=== PATIENT | male | born 1985 | race American Indian/Alaskan Native ===

== ENCOUNTER 2020-09-20 21:34 | Emergency (ER) | payer OTHER ==
[2020-09-20] MEDS ORDERED: LIDOCAINE (1%) 10 MG/1 ML VIAL 20 ML MDV ONE (21:47)
[2020-09-20] MEDS ORDERED: SODIUM CHLORIDE IRRI 500 ML 500 ML IR ONE (21:49)
[2020-09-20] MEDS ORDERED: DIPHtheria,PERTUSSIS(ACELL),TETANUS VACCINE/PF 0.5 ML VIAL IM ONE (21:50)
[2020-09-20] MEDS: LIDOCAINE (1%) 10 MG/1 ML VIAL 20 ML MDV INFILTRATI ONE ×2 (22:05→23:29)
--- NOTE | 2020-09-20 22:09 | Emergency Department Report ---
ED Animal Bite HPI - General Chief Complaint: Animal Bite Stated Complaint: DOG BITE/LEFT SIDE/[employer] COMP Time Seen by Provider: 09/20/20 21:45 Source: patient Mode of arrival: Ambulatory Limitations: No Limitations - History of Present Illness Initial Comments: Patient is a 35-year-old male with no significant past medical history. Patient presented to the ER for evaluation after a dog bite. 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 Patient presented with laceration to the left arm and multiple abrasion to the chest wall. Patient stated that the dog is up-to-date on immunization. She also stated that the dog look well and it does not look sick. Patient is not sure about his tetanus immunization patient given tetanus shot in the ER. Laceration repaired. Patient advised to follow-up with his primary doctor in the next 2 to 3 days and to return to the ER if he develop any new symptoms. MD Complaint: animal bite, animal-related injury -: Sudden Left: Arm Animal: dog Description: household pet, appeared well Mechanism: bite Pain Description: sharp Context: unprovoked Associated Symptoms: none - Related Data Patient Tetanus UTD: No Allergies Allergy/AdvReac Type Severity Reaction Status Date / Time shellfish derived Allergy Anaphylaxis Verified 09/20/20 22:02 ED Review of Systems ROS: Stated complaint: DOG BITE/LEFT SIDE/[employer] COMP Other details as noted in HPI Comment: All other systems reviewed and negative Constitutional: denies: chills, fever Respiratory: denies: cough, shortness of breath, SOB with exertion Cardiovascular: denies: chest pain, palpitations Gastrointestinal: denies: abdominal pain, nausea Musculoskeletal: denies: back pain ED Past Medical Hx - Past Medical History Previous Medical History?: Yes Hx Hypertension: Yes - Surgical History Past Surgical History?: No - Social History Smoking Status: Never Smoker Substance Use Type: Alcohol ED Physical Exam - General Limitations: No Limitations General appearance: alert, in no apparent distress - Head Head exam: Present: atraumatic, normocephalic, normal inspection - Eye Eye exam: Present: normal appearance - ENT ENT exam: Present: normal exam - Neck Neck exam: Present: normal inspection, full ROM. Absent: tenderness, meningismus - Respiratory Respiratory exam: Present: normal lung sounds bilaterally - Cardiovascular Cardiovascular Exam: Present: regular rate, normal rhythm, normal heart sounds - GI/Abdominal GI/Abdominal exam: Present: soft, normal bowel sounds. Absent: distended, te nderness, guarding, rebound, rigid - Expanded Upper Extremity Exam Right General: Present: laceration (4 cm laceration to the left arm.) Shoulder Exam: Present: normal inspection, full ROM - Skin Skin exam: Present: abrasion ED Course Vital Signs 09/20/20 21:45 Temperature 98.2 F Pulse Rate 73 Respiratory 18 Rate Blood Pressure 142/82 O2 Sat by Pulse 96 Oximetry - Laceration /Wound Repair Left Arm Wound's Depth, Shape: linear, irregular Wound Explored: clean Betadine Prep?: Yes Anesthesia: 1% Lidocaine Volume Anesthetic (ccs): 4 Wound Repaired With: sutures Suture Size/Type: 4:0 Sterile Dressing Applied?: Yes Critical care attestation.: If time is entered above; I have spent that time in minutes in the direct care of this critically ill patient, excluding procedure time. ED Disposition Clinical Impression: Dog bite, Laceration of upper arm Disposition: DC-01 TO HOME OR SELFCARE Is pt being admited?: No Condition: Stable Instructions: Animal Bite, Adult, [id number], Sutured Wound Care, Laceration Care, Adult Referrals: PRIMARY CARE, [Referring] - 3-5 Days
[2020-09-20] MEDS ORDERED: NEOMY 3.5 MG/BACIT 400 UNITS/POLY B 5000 UNITS/GM OINT PACKET TP ONE (22:26)
[2020-09-20] MEDS: NEOMY 3.5 MG/BACIT 400 UNITS/POLY B 5000 UNITS/GM OINT PACKET TP ONE ×2 (22:30→23:29)
[2020-09-20 22:51] VITALS: BP 142/82
== END 2020-09-20 22:00 | disposition home or self-care (01) ==
LOC: ED 21:34
DX: S41.112A Laceration without foreign body of left upper arm, initial encounter (principal); S20.319A Abrasion of unspecified front wall of thorax, initial encounter; I10 Essential (primary) hypertension; Z91.013 Allergy to seafood; W54.0XXA Bitten by dog, initial encounter; Y93.89 Activity, other specified; Y92.89 Other specified places as the place of occurrence of the external cause; Y99.8 Other external cause status
CPT/HCPCS: 12002; 90471; 90715; 99282; A6250

== ENCOUNTER 2020-09-28 15:21 | Emergency (ER) | payer OTHER ==
[2020-09-28 16:01] VITALS: BP 174/106
--- NOTE | 2020-09-28 16:08 | Emergency Department Report ---
ED General Adult HPI - General Chief complaint: Laceration/Recheck/Suture Stated complaint: SUTURE REM Source: patient Mode of arrival: Ambulatory Limitations: No Limitations - History of Present Illness Initial comments: Patient presents for suture removal today. Sutures were placed here in ED 09/20/2020 after obtaining a dog bite. He states compliance with antibiotics and denies any fever/chills/sweats, increased pain, wound drainage, redness, or swelling. Severity scale (0 -10): 0 - Related Data Previous Rx's Medication Instructions Recorded Last Taken Type Amoxicillin/Potassium Clav 1 each PO BID #14 tablet 09/20/20 Unknown Rx [Augmentin 875-125 Tablet] Naproxen [Naprosyn] 500 mg PO BID #14 tablet 09/20/20 Unknown Rx Allergies Allergy/AdvReac Type Severity Reaction Status Date / Time shellfish derived Allergy Anaphylaxis Verified 09/20/20 22:02 ED Review of Systems ROS: Stated complaint: SUTURE REM Other details as noted in HPI Constitutional: denies: fever, malaise, weakness Gastrointestinal: denies: nausea, vomiting Skin: as per HPI. denies: rash, change in color Neurological: denies: numbness, paresthesias ED Past Medical Hx - Past Medical History Previous Medical History?: Yes Hx Hypertension: Yes - Surgical History Past Surgical History?: No - Social History Smoking Status: Never Smoker Substance Use Type: Alcohol - Medications Home Medications: Home Medications Medication Instructions Recorded Confirmed Last Taken Type Amoxicillin/Potassium Clav 1 each PO BID #14 tablet 09/20/20 Unknown Rx [Augmentin 875-125 Tablet] Naproxen [Naprosyn] 500 mg PO BID #14 tablet 09/20/20 Unknown Rx ED Physical Exam - General Limitations: No Limitations General appearance: alert, in no apparent distress - Head Head exam: Present: atraumatic, normocephalic - Eye Eye exam: Present: normal appearance. Absent: scleral icterus - Respiratory Respiratory exam: Absent: respiratory distress - Cardiovascular Cardiovascular Exam: Present: regular rate - Neurological Exam Neurological exam: Present: alert, oriented X3 - Psychiatric Psychiatric exam: Present: normal affect, normal mood - Skin Skin exam: Present: warm, dry, intact, normal color, other (Healing laceration noted to inner upper left arm without surrounding erythema, swelling, or drainage noted. There are 3 dissolvable sutures noted). Absent: rash ED Course Vital Signs 09/28/20 16:00 Temperature 98.6 F Pulse Rate 82 Respiratory 16 Rate Blood Pressure 174/106 [Right] O2 Sat by Pulse 98 Oximetry - Procedure Description Procedures done: 3 dissolvable sutures removed from wound; patient tolerated procedure well. No bleeding occurred. No immediate complications observed. ED Medical Decision Making - Medical Decision Making Patient presents for suture removal today. Sutures were placed here in ED 09/20/2020 after obtaining a dog bite. He states compliance with antibiotics and denies any fever/chills/sweats, increased pain, wound drainage, redness, or swelling. Sutures removed without difficulty or immediate complications. Patient tolerated procedure well. He is well-appearing and stable for discharge home. Patient informed to complete antibiotics and signs and symptoms of infection and strict return precautions were discussed in detail with patient who verbalizes understanding. Critical care attestation.: If time is entered above; I have spent that time in minutes in the direct care of this critically ill patient, excluding procedure time. ED Disposition Clinical Impression: Visit for suture removal Disposition: DC-01 TO HOME OR SELFCARE Is pt being admited?: No Condition: Stable Instructions: Wound Closure Removal, Care After Referrals: PRIMARY CARE, [Primary Care Provider] - 3-5 Days
== END 2020-09-28 16:23 | disposition home or self-care (01) ==
LOC: ED 15:21
DX: S41.112D Laceration without foreign body of left upper arm, subsequent encounter (principal); Z91.013 Allergy to seafood; Z48.02 Encounter for removal of sutures; X58.XXXD Exposure to other specified factors, subsequent encounter
CPT/HCPCS: 99282